=== PATIENT | female | born 1960 | race African-American/Black ===

== ENCOUNTER → 2016-03-18 | Outpatient (CLI) | payer OTHER ==
--- NOTE | 2016-03-18 18:15 | WOMENS IMAGING REPORT ---
EXAM DESCRIPTION: BILAT SCREENING MAMMO W/CAD COMPLETED DATE/TIME: 03/18/2016 9:24 am REASON FOR STUDY: Z12.31, ROUTINE SCREENING MAMMO Z12.31 ENCNTR SCREEN MAMMOGRAM FOR MALIGNANT NEOP LASM OF EZEKIEL COMPARISON: Multiple since 2012 TECHNIQUE: Standard craniocaudal and mediolateral oblique views of each breast recorded using [employer] acquisition. LIMITATIONS: None. FINDINGS: Findings present which are benign by mammographic criteria. No suspicious masses, calcifi cations or architectural distortion. Read with the assistance of CAD. .[facility] - R2 Cenova Version 1.3 .[facility] Imaging - R2 Cenova Version 1.3 .[facility] Imaging - R2 Cenova Version 2.4 .[facility] - R2 Cenova Version 2.4 .[facility] - R2 Lens Assistant Version 9.2 Benign mammographic findings may include one or more of the following: Smooth masses, popcorn/rim/co arse calcifications, asymmetries, post-procedure changes, and lesions with long-standing stability. BREAST DENSITY: c. The breasts are heterogeneously dense, which may obscure small masses. BIRAD: 2 BENIGN FINDING(S) RECOMMENDATION: ROUTINE SCREENING COMMENT: PATIENT NOTIFIED BY LETTER. The [employer] recommends an annual screening mammogram for women aged 40 years or over. Each patient will receive a reminder prior to the anniversary date of her mammogram. The [employer] (ACR) has developed recommendations for screening MRI of the breast s in certain patient populations, to be used in conjunction with mammography. Breast MRI surveillanc e may be appropriate for women with more than 20% lifetime risk of developing breast cancer as deter mined by genetic testing, significant family history of the disease, or history of mantle radiation f or Hodgkins Disease. ACR Practice Guidelines 2008. TECHNICAL DOCUMENTATION: FINDING NUMBER: (1) ASSESSMENT: (1) JOB ID: [id number] [employer]- All Rights Reserved
== END ==
LOC: WI 09:05
PROVIDERS: ATTEND Nurse Practitioner Family
DX: Z12.31 Encounter for screening mammogram for malignant neoplasm of breast (principal)
CPT/HCPCS: 77067; G0202

== ENCOUNTER 2016-09-05 10:00 | Emergency (ER) | payer BC ==
[2016-09-05] MEDS ORDERED: ALBUTEROL SULFATE 0.083% NEB 2.5 MG/3 ML AMPUL NEB ONE ×2 (10:40→11:40)
[2016-09-05] MEDS ORDERED: IPRATROPIUM/ALBUTEROL 0.5-2.5 MG/3 ML AMPUL NEB ONE (10:40)
--- NOTE | 2016-09-05 10:57 | ER Document Report ---
ED Respiratory Problem - General Chief Complaint: Congestion Stated Complaint: CONGESTION Time Seen by Provider: 09/05/16 10:31 Notes: 56 yo female c/o cough, chest congestion and tightness x 1 week. + hx/o asthma. evaluated at [facility] 4 days ago. Treated for URI with albuterol inhaler and oral prednisone without improvement. pt denies fever. + productive cough TRAVEL OUTSIDE OF THE [place] IN LAST 30 DAYS: No - HPI Duration: Worse/persistent Quality of pain: Achy Short of Breath: Mild Chest pain/discomfort: Worse with deep breaths - hurts to cough Cough: Productive Sputum color: Yellow Sputum consistency: Thick At home treatment: Bronchodilators, Oral steroids Associated symptoms: Cough, Wheezing. denies: Ankle/leg swelling, Chest pain/ discomfort, Fever Similar symptoms previously: Yes Recently seen / treated by doctor: Yes - [facility] - Related Data Allergies/Adverse Reactions: No Known Allergies Allergy (Verified 09/05/16 10:28) Past Medical History - General Information source: Patient - Social History Smoking Status: Current Every Day Smoker Chew tobacco use (# tins/day): No Frequency of alcohol use: None Drug Abuse: None Lives with: Family Family History: CAD, DM, Hyperlipidemia, Hypertension, Malignancy, Thyroid Disfunction Patient has suicidal ideation: No Patient has homicidal ideation: No - Past Medical History Cardiac Medical History: Reports: Hx Hypercholesterolemia, Hx Hypertension Denies: Hx Coronary Artery Disease, Hx Heart Attack Pulmonary Medical History: Reports: Hx Asthma Denies: Hx Bronchitis, Hx COPD, Hx Pneumonia Neurological Medical History: Denies: Hx Cerebrovascular Accident, Hx Seizures Renal/ Medical History: Denies: Hx Peritoneal Dialysis Musculoskeltal Medical History: Denies Hx Arthritis, Reports Hx Musculoskeletal Trauma Traumatic Medical History: Reports: Hx Fractures - both elbows Past Surgical History: Reports: Hx Hysterectomy - Immunizations Hx Diphtheria, Pertussis, Tetanus Vaccination: Yes Review of Systems - Review of Systems Constitutional: No symptoms reported EENT: No symptoms reported Cardiovascular: No symptoms reported Respiratory: See HPI Gastrointestinal: No symptoms reported Genitourinary: No symptoms reported Female Genitourinary: No symptoms reported Musculoskeletal: No symptoms reported Skin: No symptoms reported Hematologic/Lymphatic: No symptoms reported Neurological/Psychological: No symptoms reported Physical Exam - Vital signs Vitals: Temp Pulse Resp BP Pulse Ox 97.7 F 81 20 118/78 95 09/05/16 10:01 09/05/16 10:01 09/05/16 10:01 09/05/16 10:01 09/05/16 10:01 Interpretation: Normal - General General appearance: Appears well, Alert - HEENT Head: Normocephalic, Atraumatic Eyes: Normal Pupils: PERRL - Respiratory Respiratory status: No respiratory distress Chest status: Nontender Breath sounds: Normal Chest palpation: Normal - Cardiovascular Rhythm: Regular Heart sounds: Normal auscultation Murmur: No - Abdominal Inspection: Normal Distension: No distension Bowel sounds: Normal Tenderness: Nontender Organomegaly: No organomegaly - Back Back: Normal, Nontender - Extremities General upper extremity: Normal inspection, Nontender, Normal color, Normal ROM , Normal temperature General lower extremity: Normal inspection, Nontender, Normal color, Normal ROM , Normal temperature, Normal weight bearing. No: Katina's sign - Neurological Neuro grossly intact: Yes Cognition: Normal Orientation: AAOx4 [place] Coma Scale Eye Opening: Spontaneous Fernando Coma Scale Verbal: Oriented Fernando Coma Scale Motor: Obeys Commands Fernando Coma Scale Total: 15 Speech: Normal Motor strength normal: LUE, RUE, LLE, RLE Sensory: Normal - Psychological Associated symptoms: Normal affect, Normal mood - Skin Skin Temperature: Warm Skin Moisture: Dry Skin Color: Normal Course - Re-evaluation Re-evalutation: 09/05/16 10:56 pt evaluated. xray and neb ordered. will continue to evaluate 09/05/16 11:41 wheezing improved after neb. CXR negative. results reviewed with patient. will give one more neb and treat with Decadron IM. - Vital Signs Vital signs: Temp Pulse Resp BP Pulse Ox 97.7 F 81 20 118/78 95 09/05/16 10:01 09/05/16 10:01 09/05/16 10:01 09/05/16 10:01 09/05/16 10:01 Discharge - Discharge Clinical Impression: Cough, Asthma exacerbation URI (upper respiratory infection) Qualifiers: URI type: unspecified viral URI Qualified Code(s): J06.9 - Acute upper respiratory infection, unspecified; B97.89 - Other viral agents as the cause of diseases classified elsewhere Condition: Stable Disposition: HOME, SELF-CARE Instructions: Upper Respiratory Illness ([facility]), Asthma ([facility]), Inhaled Bronchodilators ([facility]), Steroid Medication Injection, Cough Suppressant & Expectorant Medications Additional Instructions: Ms Chambers, Your xray today was negative for pneumonia. You do not need an antibiotic for your cough Continue to use your Albuterol inhaler as needed for wheezing and tightness You were given a steroid injection that will last for 3 days Use the cough medication as prescribed Please follow up with your primary care tomorrow for a recheck and possibly a nebulizer machine And, please stop smoking Prescriptions: Albuterol Sulfate [Albuterol Sulfate 2.5mg/3 mL] 2.5 mg IH Q4H PRN #30 dose PRN Reason: ASTHMA Phenylephrine HCl/Cod/Prometh [Phenergan Vc-Codeine Syrup] 5 - 10 ml PO Q4H # 120 ml
--- NOTE | 2016-09-05 11:27 | RADIOLOGY REPORT (SQ) ---
EXAM DESCRIPTION: CHEST PA/LAT COMPLETED DATE/TIME: 09/05/2016 11:18 am REASON FOR STUDY: cough, wheeze COMPARISON: May 2015 EXAM PARAMETERS: NUMBER OF VIEWS: two views TECHNIQUE: Digital Frontal and Lateral radiographic views of the chest acquired. RADIATION DOSE: NA LIMITATIONS: none FINDINGS: LUNGS AND PLEURA: No opacities, masses or pneumothorax. No pleural effusion. MEDIASTINUM AND HILAR STRUCTURES: No masses or contour abnormalities. HEART AND VASCULAR STRUCTURES: Heart normal size. No evidence for failure. BONES: No acute findings. HARDWARE: None in the chest. OTHER: No other significant finding. IMPRESSION: NO SIGNIFICANT RADIOGRAPHIC FINDING IN THE CHEST. TECHNICAL DOCUMENTATION: JOB ID: [id number] [employer]- All Rights Reserved
[2016-09-05] MEDS ORDERED: DEXAMETHASONE SOD PHOS INJ 10 MG/1 ML VIAL IM ONE (11:41)
[2016-09-05 12:23] VITALS: BP 114/67
== END 2016-09-05 12:23 | disposition home or self-care (01) ==
LOC: ER 10:00
DX: J06.9 Acute upper respiratory infection, unspecified (principal); B97.89 Other viral agents as the cause of diseases classified elsewhere; J45.901 Unspecified asthma with (acute) exacerbation; R09.89 Other specified symptoms and signs involving the circulatory and respiratory systems; R05 Cough; R07.89 Other chest pain; F17.200 Nicotine dependence, unspecified, uncomplicated; I10 Essential (primary) hypertension
CPT/HCPCS: 94640 ×2; 99283; 96372; 71020; J1100; J7620

== ENCOUNTER 2016-09-07 17:28 | Emergency (ER) | payer BC ==
[2016-09-07 17:36] VITALS: BP 117/78
--- NOTE | 2016-09-07 18:15 | ER Document Report ---
ED Medical Screen (RME) - General Chief Complaint: Dizziness Stated Complaint: WEAKNESS Time Seen by Provider: 09/07/16 18:06 Mode of Arrival: Ambulatory Information source: [facility], [facility] Records TRAVEL OUTSIDE OF THE [place] IN LAST 30 DAYS: No - HPI Onset: Other - Several days Onset/Duration: Gradual Quality of pain: No pain Associated Symptoms: Body/muscle aches, Cough (nonproductive) Recently seen / treated by doctor: Yes Notes: 09/07/16 18:10 56-year-old female who is an active smoker and was seen here 2 days ago for cough and congestion presents today with same complaints. Patient had a negative chest x-ray at that time. Patient states she is having continued cough and congestion. Patient denies fevers. She is continuing to smoke. She is using albuterol MDI and Phenergan with codeine cough syrup. She did contact her primary care doctor and was told to come to the office but patient did not. No shortness of breath. No nausea vomiting. - Related Data Smoking: Cigarettes Allergies/Adverse Reactions: No Known Allergies Allergy (Verified 09/05/16 10:28) Past Medical History - General Information source: Patient, [facility] Records - Social History Chew tobacco use (# tins/day): No Frequency of alcohol use: None Drug Abuse: None - Past Medical History Cardiac Medical History: Reports: Hx Hypercholesterolemia, Hx Hypertension Denies: Hx Coronary Artery Disease, Hx Heart Attack Pulmonary Medical History: Reports: Hx Asthma Denies: Hx Bronchitis, Hx COPD, Hx Pneumonia Neurological Medical History: Denies: Hx Cerebrovascular Accident, Hx Seizures Renal/ Medical History: Denies: Hx Peritoneal Dialysis Musculoskeltal Medical History: Denies Hx Arthritis, Reports Hx Musculoskeletal Trauma Traumatic Medical History: Reports: Hx Fractures - both elbows Past Surgical History: Reports: Hx Hysterectomy - Immunizations Hx Diphtheria, Pertussis, Tetanus Vaccination: Yes Review of Systems - Review of Systems Respiratory: Cough, Wheezing -: Yes All other systems reviewed and negative Physical Exam - Vital signs Vitals: Temp Pulse Resp BP Pulse Ox 99.3 F 90 20 117/78 93 09/07/16 17:30 09/07/16 17:30 09/07/16 17:30 09/07/16 17:30 09/07/16 17:30 Interpretation: Normal - General General appearance: Appears well, Alert - HEENT Head: Normocephalic, Atraumatic Eyes: Normal Pupils: PERRL - Respiratory Respiratory status: No respiratory distress Chest status: Nontender Breath sounds: Wheezing - Very mild Chest palpation: Normal - Cardiovascular Rhythm: Regular Heart sounds: Normal auscultation Murmur: No - Abdominal Inspection: Normal Distension: No distension Bowel sounds: Normal Tenderness: Nontender Organomegaly: No organomegaly - Extremities General upper extremity: Normal inspection, Nontender, Normal color, Normal ROM , Normal temperature General lower extremity: Normal inspection, Nontender, Normal color, Normal ROM , Normal temperature, Normal weight bearing. No: Katina's sign - Neurological Neuro grossly intact: Yes Cognition: Normal Orientation: AAOx4 [place] Coma Scale Eye Opening: Spontaneous Fernando Coma Scale Verbal: Oriented Fernando Coma Scale Motor: Obeys Commands [place] Coma Scale Total: 15 Speech: Normal Motor strength normal: LUE, RUE, LLE, RLE Sensory: Normal - Skin Skin Temperature: Warm Skin Moisture: Dry Skin Color: Normal Course - Re-evaluation Re-evalutation: 09/07/16 18:16 Chest x-ray results reviewed from several days ago. There is no indication to repeat a chest x-ray. Given that she is an active smoker and continuing with symptoms, will start on a Z-Santy along with several days of prednisone. Discussed need for smoking cessation. - Vital Signs Vital signs: Temp Pulse Resp BP Pulse Ox 99.3 F 90 20 117/78 93 09/07/16 17:30 09/07/16 17:30 09/07/16 17:30 09/07/16 17:30 09/07/16 17:30 Doctor's Discharge - Discharge Clinical Impression: Bronchitis Condition: Good Disposition: HOME, SELF-CARE Instructions: Bronchitis With Bronchospasm (Wheezing) ([facility]) Additional Instructions: Stop smoking. Continue on your albuterol inhaler as prescribed. Follow-up with your primary care provider. Return if worse. Prescriptions: Azithromycin [Zithromax 250 mg Tablet] 250 mg PO ASDIR PRN #6 tablet PRN Reason: Prednisone [Deltasone 20 mg Tablet] 3 tab PO DAILY 5 Days
== END 2016-09-07 18:25 | disposition home or self-care (01) ==
LOC: ER 17:28
DX: J40 Bronchitis, not specified as acute or chronic (principal); R42 Dizziness and giddiness; R53.1 Weakness; M79.1 Myalgia; F17.200 Nicotine dependence, unspecified, uncomplicated; E78.00 Pure hypercholesterolemia, unspecified; I10 Essential (primary) hypertension; Z90.710 Acquired absence of both cervix and uterus
CPT/HCPCS: 99283

== ENCOUNTER 2017-01-25 22:55 | Emergency (ER) | payer BC ==
--- NOTE | 2017-01-26 00:14 | ER Document Report ---
ED General - General Chief Complaint: Chest Pain Stated Complaint: CHEST PAIN Time Seen by Provider: 01/25/17 23:51 Notes: Patient is a 56-year-old female with a past medical history of hypertension, active tobacco use who presents with 36 hours of sharp left-sided chest pain. Patient describes as a constant, stabbing, mild discomfort to the left chest. Nothing improves or worsens her pain. She denies any radiation of the pain. No associated nausea, vomiting, diaphoresis or shortness of breath. She denies any history of pleuritic pain. No history of DVT or pulmonary embolus. She does not use estrogen of any kind. She has not seen her primary care doctor regarding today's concerns. She has no known history of coronary artery disease. TRAVEL OUTSIDE OF THE [place] IN LAST 30 DAYS: No - Related Data Allergies/Adverse Reactions: No Known Allergies Allergy (Verified 09/05/16 10:28) Past Medical History - General Information source: Patient - Social History Smoking Status: Current Every Day Smoker Frequency of alcohol use: None Drug Abuse: None Lives with: Spouse/Significant other Family History: CAD, DM, Hyperlipidemia, Hypertension, Malignancy, Thyroid Disfunction - Past Medical History Cardiac Medical History: Reports: Hx Hypercholesterolemia, Hx Hypertension Denies: Hx Coronary Artery Disease, Hx Heart Attack Pulmonary Medical History: Reports: Hx Asthma Denies: Hx Bronchitis, Hx COPD, Hx Pneumonia Neurological Medical History: Denies: Hx Cerebrovascular Accident, Hx Seizures Renal/ Medical History: Denies: Hx Peritoneal Dialysis Musculoskeltal Medical History: Denies Hx Arthritis, Reports Hx Musculoskeletal Trauma Traumatic Medical History: Reports: Hx Fractures - both elbows Past Surgical History: Reports: Hx Hysterectomy - Immunizations Hx Diphtheria, Pertussis, Tetanus Vaccination: Yes Review of Systems - Review of Systems Notes: Constitutional: Negative for fever. HENT: Negative for sore throat. Eyes: Negative for visual changes. Cardiovascular: Positive for chest pain. Respiratory: Negative for shortness of breath. Gastrointestinal: Negative for abdominal pain, vomiting or diarrhea. Genitourinary: Negative for dysuria. Musculoskeletal: Negative for back pain. Skin: Negative for rash. Neurological: Negative for headaches, weakness or numbness. 10 point ROS negative except as marked above and in HPI. Physical Exam - Vital signs Vitals: Temp Pulse Resp BP Pulse Ox 97.7 F 64 20 125/76 97 01/25/17 23:13 11/28/17 23:13 01/25/17 23:13 01/25/17 23:13 01/25/17 23:13 Interpretation: Normal Notes: PHYSICAL EXAMINATION: GENERAL: Well-appearing, well-nourished and in no acute distress. HEAD: Atraumatic, normocephalic. EYES: Pupils equal round and reactive to light, extraocular movements intact, sclera anicteric, conjunctiva are normal. ENT: nares patent, oropharynx clear without exudates. Moist mucous membranes. NECK: Normal range of motion, supple without lymphadenopathy LUNGS: Breath sounds clear to auscultation bilaterally and equal. No wheezes rales or rhonchi. HEART: Regular rate and rhythm without murmurs ABDOMEN: Soft, nontender, normoactive bowel sounds. No guarding, no rebound. No masses appreciated. EXTREMITIES: Normal range of motion, no pitting or edema. No cyanosis. NEUROLOGICAL: No focal neurological deficits. Moves all extremities spontaneously and on command. PSYCH: Normal mood, normal affect. SKIN: Warm, Dry, normal turgor, no rashes or lesions noted. Course - Re-evaluation Re-evalutation: 01/26/17 00:13 Presentation of chest pain in an otherwise well appearing patient. Low clinical suspicion for ACS given clinical history, exam, EKG without ST elevations or depressions, and negative initial troponin. HEART score less than or equal to 3. PE also seems unlikely given clinical history, absence of tachycardia or dyspnea. Well's score is 0. CXR without evidence of pneumothorax or pneumonia. No widened mediastinum. Aortic dissection also seems unlikely given history, symmetric pulses, CXR, and vitals. Chest pain has been ongoing for greater than 24 hours so a single troponin should be sufficient to exclude myocardial infarction. HEART Score: History:0 EC Age:1 Risk Factors:1 Troponin:0 Total: 2 Chest pain in a patient without evidence of cardiac or other serious etiology on workup today. I discussed with patient that, based on their age, risk factors and emergency department testing today, the likelihood that their symptoms are related to a heart attack is very low (estimated risk of heart attack or over the next 30 days of less than 1%). The patient demonstrates decision making capacity and has verbalized an understanding of these risks to me. Based on this, the patient has chosen to follow-up as an outpatient. Usual chest pain return precautions reviewed. The patient states understanding and agreement with this plan. - Vital Signs Vital signs: Temp Pulse Resp BP Pulse Ox 97.7 F 64 20 125/76 97 01/25/17 23:18 01/25/17 23:18 01/25/17 23:18 01/25/17 23:18 01/25/17 23:18 - Laboratory Result Diagrams: 01/26/17 00:14 01/26/17 00:14 Laboratory results interpreted by me: 01/26/17 01/26/17 00:14 00:14 RBC 6.15 H MCV 71 L MCH 23.3 L RDW 15.1 H Monocytes % 13.9 H Potassium 3.3 L Carbon Dioxide 31 H - Diagnostic Test Radiology reviewed: Image reviewed, Reports reviewed Radiology results interpreted by me: 01/26/17 01:20 Chest x-ray: No acute infiltrate or pneumothorax - EKG Interpretation by Me Additional EKG results interpreted by me: 01/26/17 00:14 Normal sinus rhythm. Rate 68. No ST elevations or depressions. QTC is 439. Discharge - Discharge Clinical Impression: Chest pain Qualifiers: Chest pain type: unspecified Qualified Code(s): R07.9 - Chest pain, unspecified Condition: Good Disposition: HOME, SELF-CARE Additional Instructions: You were seen today for chest pain. The exact cause of your pain is unclear. However, based on your cardiac enzyme testing, chest x-ray, and EKG it does not appear that it is from an immediately life-threatening cause at this time. Although your testing here is normal is critical that you follow-up with your primary care physician for continued evaluation of this chest pain and possible stress testing. I recommended you see your physician within the next 24-48 hours to be evaluated for consideration of a stress test. Please return to emergency department immediately if you have worsening of your chest pain, shortness of breath, vomiting, become unable to exert yourself due to pain or difficulty breathing, you pass out, or have any pain that radiates into your arms, jaw, or back. Please also return if you have any additional symptoms that are concerning to you. Referrals: NORMA GRAY, MAYANK-C [Primary Care Provider] - Follow up in 3-5 days
[2017-01-26 00:29] LABS: ABSOLUTE BASOPHILS # (AUTO) 0.1 10^3/uL (0.0-0.2); ABSOLUTE EOSINOPHILS # (AUTO) 0.2 10^3/uL (0.0-0.6); ABSOLUTE LYMPHOCYTES (AUTO) 2.3 10^3/uL (0.5-4.7); ABSOLUTE MONOCYTES (AUTO) 0.9 10^3/uL (0.1-1.4); ABSOLUTE NEUT (AUTO) 3.1 10^3/uL (1.7-8.2); BASOPHILS % (AUTO) 1.4 % (0-2); EOSINOPHILS % (AUTO) 2.6 % (0-6); HEMATOCRIT 43.5 % (36.0-47.0); HEMOGLOBIN 14.4 g/dL (12.0-15.5); HGB HCT DIFFERENCE -0.3; MEAN CORPUSCULAR HEMOGLOBIN 23.3 pg (27.0-33.4); MEAN CORPUSCULAR VOLUME 71 fl (80-97); MONOCYTES % (AUTO) 13.9 % (3-13); RED BLOOD COUNT 6.15 10^6/uL (3.72-5.28); RED CELL DISTRIBUTION WIDTH 15.1 % (11.5-14.0); SEGMENTED NEUTROPHILS % (AUTO) 47.1 % (42-78); WHITE BLOOD COUNT 6.6 10^3/uL (4.0-10.5)
--- NOTE | 2017-01-26 00:32 | RADIOLOGY REPORT (SQ) ---
EXAM DESCRIPTION: CHEST SINGLE VIEW COMPLETED DATE/TIME: 01/26/2017 12:13 am REASON FOR STUDY: chest pain COMPARISON: Chest x-ray 09/05/2016. EXAM PARAMETERS: NUMBER OF VIEWS: One view. TECHNIQUE: Single frontal radiographic view of the chest acquired. RADIATION DOSE: NA LIMITATIONS: None. FINDINGS: LUNGS AND PLEURA: No consolidation, pneumothorax or pleural effusion. MEDIASTINUM AND HILAR STRUCTURES: No masses. Contour normal. HEART AND VASCULAR STRUCTURES: Heart normal in size. Normal vasculature. BONES: No acute findings. HARDWARE: None in the chest. IMPRESSION: No acute radiographic finding in the chest. TECHNICAL DOCUMENTATION: JOB ID: [id number] [employer]- All Rights Reserved
[2017-01-26 00:57] LABS: ANION GAP 10 (5-19); BLOOD UREA NITROGEN 11 mg/dL (7-20); CALCIUM 9.5 mg/dL (8.4-10.2); CARBON DIOXIDE 31 mmol/L (22-30); CHLORIDE 100 mmol/L (98-107); CREATININE RESULT 0.68 mg/dL (0.52-1.25); GLUCOSE 99 mg/dL (75-110); POTASSIUM 3.3 mmol/L (3.6-5.0)
[2017-01-26 01:57] VITALS: BP 129/70
--- NOTE | 2017-01-26 13:20 | EKG REPORT ---
SEVERITY:- NORMAL ECG - SINUS RHYTHM : Confirmed by: Danny Grier MD 26-Jan-2017 13:19:57
== END 2017-01-26 01:47 | disposition home or self-care (01) ==
LOC: ER 22:55
DX: R07.9 Chest pain, unspecified (principal); I10 Essential (primary) hypertension; E78.00 Pure hypercholesterolemia, unspecified; F17.200 Nicotine dependence, unspecified, uncomplicated; Z90.710 Acquired absence of both cervix and uterus
CPT/HCPCS: 36415; 71010; 80048; 84484; 85025; 93005; 93010; 99285

== ENCOUNTER → 2017-06-28 | Outpatient (CLI) | payer BC ==
--- NOTE | 2017-06-28 15:37 | WOMENS IMAGING REPORT ---
EXAM DESCRIPTION: BILAT SCREENING MAMMO W/CAD COMPLETED DATE/TIME: 06/28/2017 11:16 am REASON FOR STUDY: SCREENING MAMMO Z12.31 ENCNTR SCREEN MAMMOGRAM FOR MALIGNANT NEOPLASM OF EZEKIEL COMPARISON: 2013 to 2016 TECHNIQUE: Standard craniocaudal and mediolateral oblique views of each breast recorded using [employer] l acquisition. LIMITATIONS: None. FINDINGS: No masses, calcifications or architectural distortion. No areas of suspicion. Read with the assistance of CAD. .[facility] - R2 Cenova Version 1.3 .[facility] - R2 Cenova Version 1.3 .[facility] - R2 Cenova Version 2.4 .[facility] - R2 Cenova Version 2.4 .[facility] - R2 [employer] Engineer Version 9.2 IMPRESSION: NORMAL MAMMOGRAM. BIRADS 1. BREAST DENSITY: c. The breasts are heterogeneously dense, which may obscure small masses. BIRAD: 1 NEGATIVE RECOMMENDATION: ROUTINE SCREENING COMMENT: The patient has been notified of the results by letter per SA requirements. Additional no tification policies are in place for contacting patient with suspicious or incomplete findings. Quality ID #[id number]: The [employer] [employer] recommends an annual screening mammogram for women aged 40 years or over. This facility utilizes a reminder system to ensure that all patients receive reminder letters, and/or direct phone calls for appointments. This includes reminders for routine scr eening mammograms, diagnostic mammograms, or other Breast Imaging Interventions when appropriate. Th is patient will be placed in the appropriate reminder system. The [employer] [employer] (ACR) has developed recommendations for screening MRI of the breast s in certain patient populations, to be used in conjunction with mammography. Breast MRI surveillanc e may be appropriate for women with more than 20% lifetime risk of developing breast cancer as deter mined by genetic testing, significant family history of the disease, or history of mantle radiation f or Hodgkins Disease. ACR Practice Guidelines 2008. TECHNICAL DOCUMENTATION: FINDING NUMBER: (1) ASSESSMENT: (1) JOB ID: [id number] [employer]- All Rights Reserved Reading location - IP/workstation name: [email or web address]
== END ==
LOC: WI 10:57
PROVIDERS: ATTEND Physician Assistant
DX: Z12.31 Encounter for screening mammogram for malignant neoplasm of breast (principal)
CPT/HCPCS: 77067

== ENCOUNTER 2017-06-29 07:15 | Emergency (ER) | payer BC ==
--- NOTE | 2017-06-29 07:42 | ER Document Report ---
ED General - General Chief Complaint: Dizziness Stated Complaint: DIZZY Time Seen by Provider: 06/29/17 07:41 Mode of Arrival: Ambulatory Information source: Patient TRAVEL OUTSIDE OF THE [place] IN LAST 30 DAYS: No - HPI Notes: 57-year-old female with a past medical history of asthma, hypertension COPD and smoking presents today with complaints of coughing with hemoptysis 3 days along with dizziness. Patient states she is only coughed up a small bit of bright red blood when she has been coughing. Denies any coffee-ground emesis. Patient does take a daily baby aspirin. Patient has not tried any over-the- counter medications for cough. Patient reports she thinks she has seasonal allergies but she is unsure. She states that she feels like she has been wheezing. Patient adamantly denies any shortness of breath or chest pain. Denies any trauma or recent injury. Denies any bleeding disorders. Chest x- ray negative for any acute finding besides obstructive lung disease. CBC negative for any acute glucoses leukocytosis or anemia. CMP negative for hepatic dysfunction, noted potassium of 3.3, all electrolytes are normal. Coags normal. Patient given 40 mEq of potassium chloride orally for potassium replacement. Cardiac enzymes negative. EKG negative for acute STEMI. CTA performed good hemostasis, no acute findings seen per radiology. She is feeling much better. After performing a Medical Screening Examination, I estimate there is LOW risk for ruptured esophagus, pneumothorax, ACS, thoracic aortic dissection and patient is a reasonable for discharge based on clinical, diagnostic and laboratory evaluation. I have reevaluated this patient multiple times and no significant life threatening changes, no signs of toxicity, sepsis or peritonitis are noted. The patient and I have discussed the diagnosis and risks, and we agree with discharging home and close follow-up. We also discussed returning to the Emergency Department immediately if new or worsening symptoms occur with the understanding that symptoms and presentations can change. At this time will discharge with return precautions and follow-up recommendations. Verbal discharge instructions given a the bedside and opportunity for questions given. We have discussed the symptoms which are most concerning (e.g., saddle anesthesia, urinary or bowel incontinence or retention , changing or worsening pain) that necessitate immediate return. Medication warnings reviewed. Patient is in agreement with this plan and has verbalized understanding of return precautions and the need for primary care follow-up in the next 24-72 hours. Patient verbalized understanding of plan of care and agree with plan of care. - Related Data Allergies/Adverse Reactions: No Known Allergies Allergy (Verified 06/29/17 07:20) Past Medical History - Social History Smoking Status: Current Every Day Smoker Family History: CAD, DM, Hyperlipidemia, Hypertension, Malignancy, Thyroid Disfunction - Past Medical History Cardiac Medical History: Reports: Hx Hypercholesterolemia, Hx Hypertension Denies: Hx Coronary Artery Disease, Hx Heart Attack Pulmonary Medical History: Reports: Hx Asthma Denies: Hx Bronchitis, Hx COPD, Hx Pneumonia Neurological Medical History: Denies: Hx Cerebrovascular Accident, Hx Seizures Renal/ Medical History: Denies: Hx Peritoneal Dialysis Musculoskeltal Medical History: Denies Hx Arthritis, Reports Hx Musculoskeletal Trauma Traumatic Medical History: Reports: Hx Fractures - both elbows Past Surgical History: Reports: Hx Hysterectomy - Immunizations Hx Diphtheria, Pertussis, Tetanus Vaccination: Yes Physical Exam - Vital signs Vitals: Temp Pulse Resp BP Pulse Ox 97.9 F 75 14 119/71 98 06/29/17 07:19 06/29/17 07:19 06/29/17 07:19 06/29/17 07:19 06/29/17 07:19 Course - Re-evaluation Re-evalutation: 06/29/17 12:06 Orthostatics were normal 113/72 - Vital Signs Vital signs: Temp Pulse Resp BP Pulse Ox 97.9 F 52 L 18 118/73 98 06/29/17 07:19 06/29/17 09:33 06/29/17 10:01 06/29/17 10:00 06/29/17 10:01 - Laboratory Result Diagrams: 06/29/17 08:11 06/29/17 08:11 Laboratory results interpreted by me: 06/29/17 06/29/17 08:11 08:11 RBC 6.34 H MCV 71 L MCH 22.9 L RDW 14.5 H Potassium 3.3 L Carbon Dioxide 31 H - EKG Interpretation by Wy EKG shows normal: Sinus rhythm Rate: Normal Rhythm: NSR Heart block present: 1st Degree - Heart rate [address] segment changes from previous EKG Discharge - Discharge Clinical Impression: Cough, History of hemoptysis, Dizziness, Tobacco use disorder, COPD exacerbation, Hypokalemia Condition: Good Disposition: HOME, SELF-CARE Instructions: Cough Suppressant & Expectorant Medications, Dizziness ([facility]), Chronic Obstructive Lung Disease ([facility]), Potassium ([facility]) Additional Instructions: Potassium A potassium-containing medication has been prescribed. This is usually used to treat potassium depletion caused by diuretics or by vomiting and diarrhea. This type of medicine is available in many forms, including elixirs, powders, fruity drinks, and pills. If one type is not working out for you, another can be substituted. Potassium can cause stomach upset. This can be prevented by taking it with meals. Do not take more than your doctor recommends. Notify your doctor if you develop repeated vomiting, black or bloody stool , severe weakness or numbness. Follow-up with your primary care doctor in the next 24 hours. Follow-up with chauffeur [employer] for the next 3-5 days. You were seen for a COPD exacerbation. Your symptoms improved with treatment here in the emergency department. However, it is very important that you return to the emergency department immediately if you began to have worsening difficulty breathing that does not respond to your normal home nebulizers. You are also being sent home on a five-day course of steroids that you should start taking tomorrow. Take prednisone as directed, use rescue inhaler and Tessalon Perles as needed. Your lab work and diagnostic tests were all normal except you did have a low potassium, we did give you potassium replacement here orally, he eat a high potassium diet which includes foods such as bananas. Please also take the antibiotics as prescribed. Please also follow closely with your primary care physician. You should eturn to emergency department if you develop fever greater than 101, persistent cough, persistent vomiting, pass out, or any other symptoms that are concerning to you. Prescriptions: Benzonatate [Tessalon Perles 100 mg Capsule] 100 mg PO Q8HP PRN #20 capsule PRN Reason: Albuterol Sulfate [Ventolin Hfa] 1 - 2 puff IH Q4 PRN #1 hfa.aer.ad PRN Reason: Prednisone [Deltasone 20 mg Tablet] 3 tab PO DAILY 5 Days #15 tablet Forms: Return to Work, Smoking Cessation Education Referrals: NORAM GRAY, MAYANK-C [Primary Care Provider] - Follow up tomorrow SKY ARGUETA MD [ACTIVE STAFF] - Follow up in 3-5 days
[2017-06-29 08:20] LABS: ABSOLUTE BASOPHILS # (AUTO) 0.1 10^3/uL (0.0-0.2); ABSOLUTE EOSINOPHILS # (AUTO) 0.1 10^3/uL (0.0-0.6); ABSOLUTE LYMPHOCYTES (AUTO) 1.5 10^3/uL (0.5-4.7); ABSOLUTE MONOCYTES (AUTO) 0.7 10^3/uL (0.1-1.4); ABSOLUTE NEUT (AUTO) 3.5 10^3/uL (1.7-8.2); BASOPHILS % (AUTO) 1.2 % (0-2); EOSINOPHILS % (AUTO) 1.5 % (0-6); HEMATOCRIT 44.8 % (36.0-47.0); HEMOGLOBIN 14.5 g/dL (12.0-15.5); LYMPHOCYTES % (AUTO) 25.9 % (13-45); MEAN CORPUSCULAR HEMOGLOBIN 22.9 pg (27.0-33.4); MEAN CORPUSCULAR HGB CONC 32.4 g/dL (32.0-36.0); MEAN CORPUSCULAR VOLUME 71 fl (80-97); MONOCYTES % (AUTO) 11.6 % (3-13); PLATELET COUNT 261 10^3/uL (150-450); RED BLOOD COUNT 6.34 10^6/uL (3.72-5.28); RED CELL DISTRIBUTION WIDTH 14.5 % (11.5-14.0); SEGMENTED NEUTROPHILS % (AUTO) 59.8 % (42-78); TOTAL CELLS COUNTED % (AUTO) 100 %; WHITE BLOOD COUNT 5.9 10^3/uL (4.0-10.5)
[2017-06-29 08:34] LABS: INTERNATIONAL RATION (INR) 0.94
[2017-06-29 08:45] LABS: ALANINE AMINOTRANSFERASE 19 U/L (9-52); ALBUMIN 4.2 g/dL (3.5-5.0); ALKALINE PHOSPHATASE 71 U/L (38-126); ANION GAP 11 (5-19); ASPARTATE AMINO TRANSFERASE 24 U/L (14-36); BILIRUBIN,DIRECT 0.3 mg/dL (0.0-0.4); BILIRUBIN,TOTAL 0.9 mg/dL (0.2-1.3); BLOOD UREA NITROGEN 10 mg/dL (7-20); CALCIUM 9.9 mg/dL (8.4-10.2); CARBON DIOXIDE 31 mmol/L (22-30); CHLORIDE 102 mmol/L (98-107); CREATINE KINASE 120 U/L (30-135); GLUCOSE 103 mg/dL (75-110); POTASSIUM 3.3 mmol/L (3.6-5.0); SODIUM 143.9 mmol/L (137-145); TOTAL PROTEIN 7.2 g/dL (6.3-8.2)
--- NOTE | 2017-06-29 08:51 | RADIOLOGY REPORT (SQ) ---
EXAM DESCRIPTION: CHEST SINGLE VIEW COMPLETED DATE/TIME: 06/29/2017 8:35 am REASON FOR STUDY: reports coughing up blood x 3 days COMPARISON: 11/08/2013, 06/20/2015, 09/05/2016, 01/26/2017 EXAM PARAMETERS: NUMBER OF VIEWS: One view. TECHNIQUE: Single frontal radiographic view of the chest acquired. RADIATION DOSE: NA LIMITATIONS: None. FINDINGS: LUNGS AND PLEURA: Lungs are hyperinflated and hyperlucent from obstructive disease. No ac [place] infiltrates. No pleural effusion. No pneumothorax. MEDIASTINUM AND HILAR STRUCTURES: No masses. Contour normal. HEART AND VASCULAR STRUCTURES: Heart normal in size. Normal vasculature. BONES: No acute findings. HARDWARE: None in the chest. OTHER: No other significant finding. IMPRESSION: Obstructive lung disease. No acute infiltrates. Consider follow-up CT chest with IV contrast given history of hemoptysis TECHNICAL DOCUMENTATION: JOB ID: [id number] [employer]- All Rights Reserved Reading location - IP/workstation name: [email or web address]
[2017-06-29 08:58] LABS: TROPONIN I < 0.012 ng/mL
--- NOTE | 2017-06-29 09:12 | EKG REPORT ---
SEVERITY:- ABNORMAL ECG - SINUS RHYTHM FIRST DEGREE AV BLOCK : Confirmed by: Jerrod Acosta 29-Jun-2017 09:11:51
[2017-06-29] MEDS ORDERED: POTASSIUM CHLORIDE 10 MEQ TABLET.SA PO ONE (10:11)
[2017-06-29] MEDS ORDERED: NORMAL SALINE 1000 ML 1,000 ML IV PRN (10:12)
[2017-06-29] MEDS ORDERED: ONDANSETRON HCL INJ/PF 4 MG/2 ML SDV IV ONE (11:05)
--- NOTE | 2017-06-29 11:32 | RADIOLOGY REPORT (SQ) ---
EXAM DESCRIPTION: CTA CHEST COMPLETED DATE/TIME: 06/29/2017 10:59 am REASON FOR STUDY: Hemoptysis, cough x 3 days COMPARISON: AP chest 06/29/2017, 09/05/2016 TECHNIQUE: CT scan of the chest performed using helical scanning technique with dynamic intravenous contrast injection. Images reviewed with lung, soft tissue and bone windows. Reconstructed coronal and sagittal MPR images reviewed. Additional 3 dimensional post-processing performed to develop Maximal Intensity Projection images ([place] P). All images stored on PACS. All CT scanners at this facility use dose modulation, iterative reconstruction, and/or weight based d osing when appropriate to reduce radiation dose to as low as reasonably achievable (ALARA). [facility]: Dose Right [facility]: CareDose [facility]: Dose Right [facility]: Teradose 4D [facility]: [employer] CONTRAST TYPE AND DOSE: contrast/concentration: Isovue 370.00 mg/ml; Total Contrast Delivered: 64.0 ml; Total Saline Delivered: 105.1 ml Contrast bolus adequate for pulmonary arteries and aorta. RENAL FUNCTION: Creatinine 0.65 RADIATION DOSE: CT Rad equipment meets quality standard of care and radiation dose reduction techniq ues were employed. CTDIvol: 14.3 - 19.8 mGy. DLP: 583 mGy-cm. . LIMITATIONS: None. FINDINGS: LUNGS AND PLEURA: No acute infiltrates. No pleural effusion. No pneumothorax. 4 mm nonc alcified granuloma right upper lobe near the minor fissure, best shown on axial image 58 and coronal image 36 of doubtful clinical significance. AORTA AND GREAT VESSELS: No aneurysm. Contrast bolus not optimized for the aorta. HEART: No pericardial effusion. No significant coronary artery calcifications. PULMONARY ARTERIES: No emboli visualized in the main pulmonary arteries or the segmental branches. HILAR AND MEDIASTINAL STRUCTURES: No identified masses or abnormal nodes. HARDWARE: None in the chest. UPPER ABDOMEN: No significant findings. Limited exam. THYROID AND OTHER SOFT TISSUES: No masses. No adenopathy. BONES: No acute or significant finding. 3D MIPS: Confirm above findings. OTHER: No other significant finding. IMPRESSION: No CT angio evidence of acute pulmonary emboli or thoracic aortic dissection. No imagin g findings to explain history of chest pain and hemoptysis. COMMENT: Quality ID # [id number]: Final reports with documentation of one or more dose reduction techniques (e.g., Automated exposure control, adjustment of the mA and/or kV according to patient size, use of iterative reconstruction technique) TECHNICAL DOCUMENTATION: JOB ID: [id number] [employer]- All Rights Reserved Reading location - IP/workstation name: [email or web address]
[2017-06-29 12:26] VITALS: BP 137/81
== END 2017-06-29 12:27 | disposition home or self-care (01) ==
LOC: ER 07:15
DX: J44.1 Chronic obstructive pulmonary disease with (acute) exacerbation (principal); R05 Cough; R42 Dizziness and giddiness; E87.6 Hypokalemia; I10 Essential (primary) hypertension; F17.200 Nicotine dependence, unspecified, uncomplicated
CPT/HCPCS: 93005; 99285; 96361; 96374; 36415; 82553; 82550; 85025; 85610; 80053; 84484; 71045; 71275; 93010; J2405; J7030

== ENCOUNTER 2017-08-14 23:26 | Emergency (ER) | payer BC ==
[2017-08-15 00:37] VITALS: BP 120/68
--- NOTE | 2017-08-15 01:20 | RADIOLOGY REPORT (SQ) ---
EXAM DESCRIPTION: XR CHEST 2 VIEWS COMPLETED DATE/TME: 08/15/2017 00:00 CLINICAL HISTORY: cough COMPARISON: 06/29/2017 FINDINGS: Frontal and lateral views of the chest. Atherosclerotic calcification of the aortic arch. Heart is not enlarged. No consolidation, pneumothorax, or pleural effusion. Minimal degenerative change of the spine. No acute osseous abnormalities. Upper abdominal soft tissues are unremarkable. IMPRESSION: 1. No acute pulmonary process identified.
[2017-08-15] MEDS ORDERED: GUAIFENESIN/D-METHORPHAN (200-20 MG) SYRUP 10 ML PO ONE (01:25)
[2017-08-15] MEDS ORDERED: AZITHROMYCIN 250 MG TABLET PO ONE (01:25)
[2017-08-15] MEDS ORDERED: PREDNISONE 20 MG TABLET PO ONE (01:27)
--- NOTE | 2017-08-15 01:27 | ER Document Report ---
ED Respiratory Problem - General Chief Complaint: Congestion Stated Complaint: COUGH Time Seen by Provider: 08/15/17 00:58 Mode of Arrival: Ambulatory Information source: Patient Notes: Pt is a 57 year old female with a history of COPD who presents to the ER today for 1 week of cough, productive, with wheezing and runny nose, chills. She doesn 't know if she's had fever or not. She states she's been using her albuterol inhaler which has been helping, and she states she does not need a refill of albuterol. TRAVEL OUTSIDE OF THE [place] IN LAST 30 DAYS: No - Related Data Allergies/Adverse Reactions: No Known Allergies Allergy (Verified 06/29/17 07:20) Past Medical History - General Information source: Patient - Social History Smoking Status: Unknown if Ever Smoked Family History: CAD, DM, Hyperlipidemia, Hypertension, Malignancy, Thyroid Disfunction Patient has suicidal ideation: No Patient has homicidal ideation: No - Past Medical History Cardiac Medical History: Reports: Hx Hypercholesterolemia, Hx Hypertension Denies: Hx Coronary Artery Disease, Hx Heart Attack Pulmonary Medical History: Reports: Hx Asthma Denies: Hx Bronchitis, Hx COPD, Hx Pneumonia Neurological Medical History: Denies: Hx Cerebrovascular Accident, Hx Seizures Renal/ Medical History: Denies: Hx Peritoneal Dialysis Musculoskeltal Medical History: Denies Hx Arthritis, Reports Hx Musculoskeletal Trauma Traumatic Medical History: Reports: Hx Fractures - both elbows Past Surgical History: Reports: Hx Hysterectomy - Immunizations Hx Diphtheria, Pertussis, Tetanus Vaccination: Yes Review of Systems - Review of Systems Constitutional: See HPI EENT: See HPI Cardiovascular: No symptoms reported Respiratory: See HPI Gastrointestinal: No symptoms reported Genitourinary: No symptoms reported Female Genitourinary: No symptoms reported Musculoskeletal: No symptoms reported Skin: No symptoms reported Hematologic/Lymphatic: No symptoms reported Neurological/Psychological: No symptoms reported Physical Exam - Vital signs Vitals: Temp Pulse Resp BP Pulse Ox 98.1 F 72 16 120/68 95 08/15/17 00:35 08/15/17 00:35 08/15/17 00:35 08/15/17 00:35 08/15/17 00:35 - Notes Notes: PHYSICAL EXAMINATION: GENERAL: Mildly ill-appearing, but in no acute distress. HEAD: Atraumatic, normocephalic. EYES: Pupils equal round and reactive to light, extraocular movements intact, sclera anicteric, conjunctiva are normal. ENT: ear canals without erythema or foreign body, TMs pearly mullen with good bony landmarks, nares with mucoid discharge, oropharynx erythematous with enlarged tonsils without exudates. Moist mucous membranes. NECK: Normal range of motion, supple without lymphadenopathy LUNGS: cough, otherwise CTAB and equal. No wheezes rales or rhonchi. HEART: Regular rate and rhythm without murmurs ABDOMEN: Soft, no tenderness. No guarding, no rebound BACK: no vertebral tenderness, normal ROM GI/: no CVA tenderness EXTREMITIES: Normal range of motion, no pitting edema. No cyanosis. NEUROLOGICAL: Cranial nerves grossly intact. Normal sensory/motor exams. PSYCH: Normal mood, normal affect. SKIN: Warm, Dry, normal turgor, no rashes or lesions noted Course - Vital Signs Vital signs: Temp Pulse Resp BP Pulse Ox 98.1 F 72 16 120/68 95 08/15/17 00:35 08/15/17 00:35 08/15/17 00:35 08/15/17 00:35 08/15/17 00:35 Discharge - Discharge Clinical Impression: COPD exacerbation Condition: Stable Disposition: HOME, SELF-CARE Additional Instructions: Return immediately for any new or worsening symptoms. Follow up with primary care provider, call tomorrow to make followup appointment. Prescriptions: Azithromycin [Zithromax 250 mg Tablet] 250 mg PO ASDIR PRN #6 tablet PRN Reason: D-Methorphan Hb/Prometh HCl [Promethazine-Dm Syrup] 5 ml PO Q8 PRN #120 ml PRN Reason: Prednisone [Deltasone 20 mg Tablet] 3 tab PO DAILY 5 Days tablet Forms: Return to Work Referrals: NORMA GRAY FNP-C [Primary Care Provider] - Follow up as needed
== END 2017-08-15 01:42 | disposition home or self-care (01) ==
LOC: ER 23:26
DX: J44.1 Chronic obstructive pulmonary disease with (acute) exacerbation (principal); E78.00 Pure hypercholesterolemia, unspecified; I10 Essential (primary) hypertension; Z90.710 Acquired absence of both cervix and uterus
CPT/HCPCS: 99283; 71046; J7512; J3490

== ENCOUNTER → 2018-07-13 | Outpatient (CLI) | payer BC ==
--- NOTE | 2018-07-13 11:40 | WOMENS IMAGING REPORT ---
EXAM DESCRIPTION: BONE DENSITY HIP/SPINE COMPLETED DATE/TIME: 07/13/2018 11:32 am REASON FOR STUDY: Z78.0 Z12.31 ENCNTR SCREEN MAMMOGRAM FOR MALIGNANT NEOPLASM OF EZEKIEL Z78.0 ASYMPTO MATIC MENOPAUSAL STATE COMPARISON: None. TECHNIQUE: Dual-Energy X-ray Absorptiometry (DEXA) of the AP Spine and Hip. LIMITATIONS: None. FINDINGS: LUMBAR SPINE: The bone mineral density (BMD) measured from L1-L4 in the AP projection correlates with a T-score of 0.9, which is normal as defined by the World Health Organization. HIP: The bone mineral density (BMD) measured in the left hip correlates with a T-score of -0.6, which is n ormal as defined by the World Health Organization. IMPRESSION: 1. LUMBAR SPINE: NORMAL. 2. HIP: NORMAL. COMMENT: The World Health Organization defines low BMD as follows: T-score: Normal: Greater than -1.0 Osteopenia: Between -1.0 and -2.5 Osteoporosis: Less than -2.5 without fractures Established osteoporosis: Less than -2.5 with fractures In general, you may wish to consider: Diagnosis Treatment Follow-up DEXA Normal BMD Prevention 2-3 years Osteopenia Prevention/Therapy 1-2 years Osteoporosis Therapy Yearly TECHNICAL DOCUMENTATION: JOB ID: [id number] [employer]- All Rights Reserved Reading location - IP/workstation name: [email or web address]
--- NOTE | 2018-07-13 13:13 | WOMENS IMAGING REPORT ---
EXAM DESCRIPTION: BILAT SCREENING MAMMO W/CAD COMPLETED DATE/TIME: 07/13/2018 11:32 am REASON FOR STUDY: ROUTINE BILATERAL SCREENING;Z12.31 Z12.31 ENCNTR SCREEN MAMMOGRAM FOR MALIGNANT N EOPLASM OF EZEKIEL Z78.0 ASYMPTOMATIC MENOPAUSAL STATE COMPARISON: [id number] EXAM PARAMETERS: Standard craniocaudal and mediolateral oblique views of each breast recorded using digital acquisition. Read with the assistance of CAD. .[facility] [employer] Version 9.2 LIMITATIONS: None. FINDINGS: No suspicious masses, suspicious calcifications or architectural distortion. No areas of s uspicion. IMPRESSION: ASSESSMENT: Negative MAMMOGRAM. BIRADS 1 BREAST DENSITY: c. The breasts are heterogeneously dense, which may obscure small masses. BIRAD: 1 NEGATIVE RECOMMENDATION: ROUTINE SCREENING COMMENT: The patient has been notified of the results by letter per MQSA requirements. Additional no tification policies are in place for contacting patient with suspicious or incomplete findings. Quality ID #[id number]: The [employer] recommends an annual screening mammogram for women aged 40 years or over. This facility utilizes a reminder system to ensure that all patients receive reminder letters, and/or direct phone calls for appointments. This includes reminders for routine scr eening mammograms, diagnostic mammograms, or other Breast Imaging Interventions when appropriate. Th is patient will be placed in the appropriate reminder system. TECHNICAL DOCUMENTATION: FINDING NUMBER: (1) ASSESSMENT: (1) JOB ID: [id number] [employer]- All Rights Reserved Reading location - IP/workstation name: [email or web address]
== END ==
LOC: WI 11:01
PROVIDERS: ATTEND Physician Assistant
DX: Z12.31 Encounter for screening mammogram for malignant neoplasm of breast (principal); Z78.0 Asymptomatic menopausal state; Z13.820 Encounter for screening for osteoporosis
CPT/HCPCS: 77067; 77080

== ENCOUNTER 2019-03-05 15:43 | Emergency (ER) | payer BC ==
[2019-03-05] MEDS ORDERED: ASPIRIN 81 MG TABLET, CHEWABLE PO ONE (16:31)
--- NOTE | 2019-03-05 16:32 | ER Document Report ---
ED Medical Screen (RME) - General Chief Complaint: Headache Stated Complaint: HEADACHE/CHEST PAIN Time Seen by Provider: 03/05/19 16:28 Primary Care Provider: YARELY XIONG PA-C [Primary Care Provider] - Follow up as needed Mode of Arrival: Ambulatory Information source: Patient Notes: Patient presents complaining of headache pain for the past week with midsternal chest pain that started yesterday. Patient denies any cough cold symptoms nausea or vomiting. Patient denies any lightheadedness or dizziness. I have greeted and performed a rapid initial assessment of this patient. A comprehensive ED assessment and evaluation of the patient, analysis of test results and completion of the medical decision making process will be conducted by additional ED providers. TRAVEL OUTSIDE OF THE [place] IN LAST 30 DAYS: No - Related Data Allergies/Adverse Reactions: No Known Allergies Allergy (Verified 06/29/17 07:20) Home Medications: amlodipine, hydrochlorothiazide, albuterol Past Medical History - Social History Chew tobacco use (# tins/day): No Frequency of alcohol use: Rare Drug Abuse: None - Past Medical History Cardiac Medical History: Reports: Hx Hypercholesterolemia, Hx Hypertension Denies: Hx Coronary Artery Disease, Hx Heart Attack Pulmonary Medical History: Reports: Hx Asthma Denies: Hx Bronchitis, Hx COPD, Hx Pneumonia Neurological Medical History: Denies: Hx Cerebrovascular Accident, Hx Seizures Renal/ Medical History: Denies: Hx Peritoneal Dialysis Musculoskeltal Medical History: Denies Hx Arthritis, Reports Hx Musculoskeletal Trauma Traumatic Medical History: Reports: Hx Fractures - both elbows Past Surgical History: Reports: Hx Hysterectomy - Immunizations Hx Diphtheria, Pertussis, Tetanus Vaccination: Yes Physical Exam - Vital signs Vitals: Temp Pulse Resp BP Pulse Ox 98.5 F 75 18 106/65 96 03/05/19 15:57 03/05/19 15:57 03/05/19 15:57 03/05/19 15:57 03/05/19 15:57 - General General appearance: Appears well, Alert - Cardiovascular Rhythm: Regular Heart sounds: S1 appreciated, S2 appreciated Murmur: No Course - Vital Signs Vital signs: Temp Pulse Resp BP Pulse Ox 98.5 F 75 18 106/65 96 03/05/19 15:57 03/05/19 15:57 03/05/19 15:57 03/05/19 15:57 03/05/19 15:57 Doctor's Discharge - Discharge Referrals: YARELY XIONG PAJosefaC [Primary Care Provider] - Follow up as needed
--- NOTE | 2019-03-05 16:59 | RADIOLOGY REPORT (SQ) ---
EXAM DESCRIPTION: CHEST 2 VIEWS COMPLETED DATE/TIME: 03/05/2019 4:49 pm REASON FOR STUDY: cp COMPARISON: 08/15/2017. EXAM PARAMETERS: NUMBER OF VIEWS: two views TECHNIQUE: Digital Frontal and Lateral radiographic views of the chest acquired. RADIATION DOSE: NA LIMITATIONS: none FINDINGS: LUNGS AND PLEURA: No opacities, masses or pneumothorax. No pleural effusion. MEDIASTINUM AND HILAR STRUCTURES: No masses or contour abnormalities. HEART AND VASCULAR STRUCTURES: Heart normal size. No evidence for failure. BONES: No acute findings. HARDWARE: None in the chest. OTHER: No other significant finding. IMPRESSION: NO ACUTE RADIOGRAPHIC FINDING IN THE CHEST. TECHNICAL DOCUMENTATION: JOB ID: [id number] [employer]- All Rights Reserved Reading location - IP/workstation name: [email or web address]
--- NOTE | 2019-03-05 17:12 | ER Document Report ---
ED General - General Chief Complaint: Headache Stated Complaint: HEADACHE/CHEST PAIN Time Seen by Provider: 03/05/19 16:28 Primary Care Provider: YARELY XIONG PA-C [Primary Care Provider] - Follow up as needed Mode of Arrival: Ambulatory TRAVEL OUTSIDE OF THE [place] IN LAST 30 DAYS: No - HPI Notes: Patient is a 58-year-old female with a history of hypertension who presents complaining of sternal chest pain bilaterally that began last night and has been relatively constant. Patient states that she currently does not have any active pain. Patient is also complaining of frontal headache that is been present intermittently for the past week. Patient states that this is not the worst headache of her life and did not start as a thunderclap. Patient states that she has had headaches like this in the past. She is able to eat and drink without difficulty. She is urinating normally. No history of CAD, DM, CVA, TIA, DVT, PE. Denies any prolonged immobilization, distance travel, recent surgery/trauma, personal cancer history, hormone use. Denies any fever, head injury, neck pain, changes in vision/speech/mentation/hearing, URI, sore throat, palpitations, syncope, cough, shortness of breath, wheeze, dyspnea, abdominal pain, nausea/vomiting/diarrhea, urinary retention, dysuria, hematuria, loss of control of bowel or bladder, numbness/tingling, saddle anesthesia, muscle paralysis/weakness, or rash. - Related Data Allergies/Adverse Reactions: No Known Allergies Allergy (Verified 06/29/17 07:20) Home Medications: amlodipine, hydrochlorothiazide, albuterol Past Medical History - General Information source: Patient - Social History Smoking Status: Current Every Day Smoker Chew tobacco use (# tins/day): No Frequency of alcohol use: Rare Drug Abuse: None Family History: CAD, DM, Hyperlipidemia, Hypertension, Malignancy, Thyroid Disfunction Patient has suicidal ideation: No Patient has homicidal ideation: No - Past Medical History Cardiac Medical History: Reports: Hx Hypercholesterolemia, Hx Hypertension Denies: Hx Coronary Artery Disease, Hx Heart Attack Pulmonary Medical History: Reports: Hx Asthma Denies: Hx Bronchitis, Hx COPD, Hx Pneumonia Neurological Medical History: Denies: Hx Cerebrovascular Accident, Hx Seizures Renal/ Medical History: Denies: Hx Peritoneal Dialysis Musculoskeletal Medical History: Denies Hx Arthritis, Reports Hx Musculoskeletal Trauma Traumatic Medical History: Reports: Hx Fractures - both elbows Past Surgical History: Reports: Hx Hysterectomy - Immunizations Hx Diphtheria, Pertussis, Tetanus Vaccination: Yes Review of Systems - Review of Systems -: Yes All other systems reviewed and negative Physical Exam - Vital signs Vitals: Temp Pulse Resp BP Pulse Ox 98.5 F 75 18 106/65 96 03/05/19 15:57 03/05/19 15:57 03/05/19 15:57 03/05/19 15:57 03/05/19 15:57 - Notes Notes: PHYSICAL EXAMINATION: GENERAL: Well-appearing, well-nourished and in no acute distress. A&Ox4. Answers questions appropriately. HEAD: Atraumatic, normocephalic. Non-tender. EYES: Pupils equal round and reactive to light, extraocular movements intact, sclera anicteric, conjunctiva are normal. No nystagmus. vis lee intact. ENT: Nares patent and without discharge. oropharynx clear without exudates. No tonsilar hypertrophy or erythema. Moist mucous membranes. NECK: Normal range of motion, supple without lymphadenopathy. No rigidity/me ningismus. No midline tenderness. Chest: + moderate tenderness to palpation rt sternal area, reproduces symptoms described. LUNGS: Breath sounds clear to auscultation bilaterally and equal. No wheezes rales or rhonchi. HEART: Regular rate and rhythm without murmurs, rubs, gallops. ABDOMEN: Soft, nontender, nondistended abdomen. No guarding, no rebound. Normal bowel sounds present. No CVA tenderness bilaterally. Musculoskeletal: Ext b/l: FROM to passive/active. Strength 5+/5. No deficits noted. No bony tenderness of extremities. Extremities: No cyanosis, clubbing, or edema b/l. Peripheral pulses 2+. Capillary refill less than 2 seconds. Katina negative bilaterally. NEUROLOGICAL: NIH 0. GCS 15. Cranial nerves grossly intact. Normal speech, normal gait. Normal sensory, motor exams. Reflexes 2+ b/l. JASON's negative. Pronator drift negative. Heel/alcaraz, finger/nose wnl. PSYCH: Normal mood, normal affect. SKIN: Warm, Dry, normal turgor, no rashes or lesions noted. Course - Re-evaluation Re-evalutation: 03/05/19 17:14 Patient is an afebrile, well-hydrated 58-year-old female who presents to the ED with atypical CP/IRWIN, suspect benign. Vitals are acceptable without any significant tachycardia, tachypnea, or hypoxia. PE is otherwise unremarkable aside from the reproducible sternal chest wall tenderness. Patient is nontoxic- appearing and is tolerating p.o. without any difficulties. Pt is currently asymptomatic. CBC, CMP, EKG/cardiac enzymes 2, chest x-ray are all unremarkable for any acute pathology. Patient has a heart score of <=3, Wells score of 0. Patient does not have any chest pain, dyspnea, or shortness of breath. Patient's presentation and symptomatology creates low suspicion for acute intracranial pathology, ACS, PE, pneumothorax, pericarditis, dissection, respiratory compromise, severe dehydration, sepsis, meningitis, or other systemic emergent condition at this time. Patient is aware that this condition can change from initial presentation and she needs to monitor symptoms closely and seek medical attention for any acute changes. Pt is feeling better and would like to go home. Recommend conservative measures for symptoms. Recheck with your PCM in 2-3 days. Consider consult with neurology/cardiology. Return to the ED with any worsening/concerning symptoms otherwise as reviewed in discharge. Patient is in agreement. - Vital Signs Vital signs: Temp Pulse Resp BP Pulse Ox 97.9 F 57 L 17 131/55 H 97 03/05/19 21:00 03/05/19 19:56 03/05/19 21:00 03/05/19 21:00 03/05/19 21:00 - Laboratory Result Diagrams: 03/05/19 17:10 03/05/19 17:10 Laboratory results interpreted by me: 03/05/19 03/05/19 17:10 17:10 RBC 6.12 H MCV 70 L MCH 22.7 L RDW 15.4 H Potassium 3.4 L Discharge - Discharge Clinical Impression: Chest wall pain Headache Qualifiers: Headache type: unspecified Headache chronicity pattern: acute headache Intracta bility: not intractable Qualified Code(s): R51 - Headache Condition: Stable Disposition: HOME, SELF-CARE Instructions: Chest Wall Pain ([facility]), Headache ([facility]) Additional Instructions: Maintain adequate fluid and food intake Take home medications as directed Healthy diet Monitor blood pressure daily and keep a log Monitor symptoms for any acute changes Recheck with your PCM in 3-5 days Consider a follow-up with neurology/cardiology Return to the ED with any worsening symptoms and/or development of fever, headache, chest pain, palpitations, syncope, shortness of breath, trouble breathing, abdominal pain, n/v/d, blood in stool/urine, loss of control of bow el/bladder, urinary retention, muscle weakness/paralysis, numbness/tingling, or other worsening symptoms that are concerning to you. Forms: Elevated Blood Pressure, Smoking Cessation Education Referrals: YARELY XIONG PA-C [Primary Care Provider] - 03/07/19 PANCHO BELTRAN MD [NO LOCAL MD] - Follow up as needed
[2019-03-05 17:51] LABS: ABSOLUTE BASOPHILS # (AUTO) 0.1 10^3/uL (0.0-0.2); ABSOLUTE EOSINOPHILS # (AUTO) 0.1 10^3/uL (0.0-0.6); ABSOLUTE LYMPHOCYTES (AUTO) 2.4 10^3/uL (0.5-4.7); ABSOLUTE MONOCYTES (AUTO) 0.9 10^3/uL (0.1-1.4); ABSOLUTE NEUT (AUTO) 4.1 10^3/uL (1.7-8.2); BASOPHILS % (AUTO) 1.2 % (0-2); EOSINOPHILS % (AUTO) 1.3 % (0-6); HEMATOCRIT 42.9 % (36.0-47.0); HEMOGLOBIN 13.9 g/dL (12.0-15.5); LYMPHOCYTES % (AUTO) 31.9 % (13-45); MEAN CORPUSCULAR HEMOGLOBIN 22.7 pg (27.0-33.4); MEAN CORPUSCULAR HGB CONC 32.4 g/dL (32.0-36.0); MEAN CORPUSCULAR VOLUME 70 fl (80-97); MONOCYTES % (AUTO) 12.2 % (3-13); PLATELET COUNT 265 10^3/uL (150-450); RED BLOOD COUNT 6.12 10^6/uL (3.72-5.28); RED CELL DISTRIBUTION WIDTH 15.4 % (11.5-14.0); SEGMENTED NEUTROPHILS % (AUTO) 53.4 % (42-78); TOTAL CELLS COUNTED % (AUTO) 100 %; WHITE BLOOD COUNT 7.6 10^3/uL (4.0-10.5)
[2019-03-05 17:53] LABS: APPEARANCE,URINE CLEAR; BILIRUBIN,URINE NEGATIVE (NEGATIVE); COLOR,URINE YELLOW; GLUCOSE, URINE NEGATIVE (NEGATIVE); KETONES,URINE NEGATIVE (NEGATIVE); LEUKOCYTE ESTERASE,URINE NEGATIVE (NEGATIVE); NITRITE,URINE NEGATIVE (NEGATIVE); PROTEIN,URINE NEGATIVE (NEGATIVE); URINE SPECIFIC GRAVITY 1.016; UROBILINOGEN,URINE NEGATIVE mg/dL (<2.0)
[2019-03-05 18:09] LABS: ALBUMIN 4.2 g/dL (3.5-5.0); ALKALINE PHOSPHATASE 75 U/L (38-126); ANION GAP 7 (5-19); ASPARTATE AMINO TRANSFERASE 22 U/L (14-36); BILIRUBIN,DIRECT 0.1 mg/dL (0.0-0.4); BILIRUBIN,TOTAL 0.6 mg/dL (0.2-1.3); BLOOD UREA NITROGEN 11 mg/dL (7-20); CALCIUM 9.6 mg/dL (8.4-10.2); CARBON DIOXIDE 30 mmol/L (22-30); CHLORIDE 101 mmol/L (98-107); GLUCOSE 97 mg/dL (75-110); POTASSIUM 3.4 mmol/L (3.6-5.0); TOTAL PROTEIN 7.2 g/dL (6.3-8.2)
--- NOTE | 2019-03-05 22:12 | EKG REPORT ---
SEVERITY:- NORMAL ECG - SINUS RHYTHM : Confirmed by: Jerrod Acosta 05-Mar-2019 22:11:15
[2019-03-05 22:31] VITALS: BP 113/64
== END 2019-03-05 22:31 | disposition home or self-care (01) ==
LOC: ER 15:43
DX: R07.89 Other chest pain (principal); R51 Headache; I10 Essential (primary) hypertension; J45.909 Unspecified asthma, uncomplicated; F17.200 Nicotine dependence, unspecified, uncomplicated; Z79.899 Other long term (current) drug therapy
CPT/HCPCS: 36415; 71046; 80053; 81001; 84484; 85025; 93005; 93010; 99285

== ENCOUNTER → 2019-07-31 | Outpatient (CLI) | payer BC ==
--- NOTE | 2019-07-31 11:17 | WOMENS IMAGING REPORT ---
EXAM DESCRIPTION: BILAT SCREENING MAMMO W/CAD IMAGES COMPLETED DATE/TIME: 07/31/2019 10:57 am REASON FOR STUDY: Z12.31 SCREENING MAMMOGRAM Z12.31 ENCNTR SCREEN MAMMOGRAM FOR MALIGNANT NEOPLASM OF [place] COMPARISON: 07/13/2018 and 06/28/2017. EXAM PARAMETERS: Standard craniocaudal and mediolateral oblique views of each breast recorded using digital acquisition. Read with the assistance of CAD. .[facility] - [email or web address] Version 9.2 LIMITATIONS: None. FINDINGS: No suspicious masses, suspicious calcifications or architectural distortion. No areas of c oncern. IMPRESSION: NEGATIVE MAMMOGRAM. BIRADS 1 BREAST DENSITY: c. The breasts are heterogeneously dense, which may obscure small masses. BIRAD: ASSESSMENT: 1 NEGATIVE RECOMMENDATION: ROUTINE SCREENING COMMENT: The patient has been notified of the results by letter per MQSA requirements. Additional no tification policies are in place for contacting patient with suspicious or incomplete findings. Quality ID #[id number]: The [employer] recommends an annual screening mammogram for women aged 40 years or over. This facility utilizes a reminder system to ensure that all patients receive reminder letters, and/or direct phone calls for appointments. This includes reminders for routine scr eening mammograms, diagnostic mammograms, or other Breast Imaging Interventions when appropriate. Th is patient will be placed in the appropriate reminder system. TECHNICAL DOCUMENTATION: FINDING NUMBER: (1) ASSESSMENT: (1) JOB ID: [id number] 2010 [employer]- All Rights Reserved Reading location - IP/workstation name: [email or web address]
== END ==
LOC: WI 10:46
PROVIDERS: ATTEND Physician Assistant
DX: Z12.31 Encounter for screening mammogram for malignant neoplasm of breast (principal)
CPT/HCPCS: 77067